=== PATIENT | male | born 1990 | race African-American/Black ===

== ENCOUNTER → 2024-09-21 | Emergency (ER) | payer OTHER ==
[~2024-09-21] VITALS: Ht 188 cm; Wt 108.9 kg
== END | disposition left against medical advice (07) ==
LOC: ER 10:11
DX: S60.041A Contusion of right ring finger without damage to nail, initial encounter (principal); X58.XXXA Exposure to other specified factors, initial encounter; Y93.89 Activity, other specified; Y92.018 Other place in single-family (private) house as the place of occurrence of the external cause; Y99.9 Unspecified external cause status